=== PATIENT | male | born 1965 | race Caucasian/White ===

== ENCOUNTER 2017-05-30 08:01 | Emergency (ER) | payer OTHER ==
[~2017-05-30] VITALS: Ht 165.1 cm; Wt 72.7 kg
[2017-05-30] MEDS ORDERED: INS7030UN SQ (08:15)
[2017-05-30 08:37] LABS: GLUCOSE,POINT OF CARE 504 MG/DL (70-110)
[2017-05-30] MEDS ORDERED: SODIUM CHLORIDE 0.9% 1,000 ML IV ONE (09:15)
[2017-05-30] MEDS ORDERED: INSULIN REGULAR, HUMAN 100 UNITS/ML IVP ONE (09:15)
[2017-05-30 09:51] LABS: ANION GAP 8 mmol/L (8-16); CALCIUM, TOTAL 8.8 mg/dL (8.8-10.5); CARBON DIOXIDE 26 mmol/L (22-29); CHLORIDE 101 mmol/L (98-107); CREATININE 0.92 mg/dL (0.60-1.30); GLOMERULAR FILTR. RATE CALC > 60 mL/min (>60); POTASSIUM 4.6 mmol/L (3.5-5.1); SODIUM SERUM 135 mmol/L (136-145); UREA NITROGEN, BLOOD 18 mg/dL (7-18)
[2017-05-30 09:52] LABS: GLUCOSE,RANDOM 403 mg/dL (70-110)
[2017-05-30 10:06] VITALS: BP 129/91
[2017-05-30 10:12] LABS: GLUCOSE,POINT OF CARE 220 MG/DL (70-110)
== END 2017-05-30 10:19 | disposition home or self-care (01) ==
LOC: EMS 08:02
DX: E11.65 Type 2 diabetes mellitus with hyperglycemia (principal); I10 Essential (primary) hypertension; F15.90 Other stimulant use, unspecified, uncomplicated; Z79.4 Long term (current) use of insulin
CPT/HCPCS: 36415; 80048; 82948; 82962; 96374; 99284; J1815; J7030